=== PATIENT | female | born 1945 | race Caucasian/White ===

== ENCOUNTER → 2018-08-09 | Outpatient (CLI) | payer OTHER | END | disposition home or self-care (01) | LOC: NUCLEAR 07:00 | DX: I20.9 Angina pectoris, unspecified (principal) | CPT/HCPCS: 78452; 93017; A9500; J0153 ==

== ENCOUNTER 2021-04-14 09:21 | Outpatient (CLI) | payer OTHER | END 2021-04-14 09:26 | disposition home or self-care (01) | LOC: NUCLEAR 09:21 | PROVIDERS: ATTEND Internal Medicine Cardiovascular Disease | DX: I73.9 Peripheral vascular disease, unspecified (principal) ==

== ENCOUNTER 2021-05-27 10:44 | Outpatient (CLI) | payer OTHER | END 2021-05-27 10:55 | disposition home or self-care (01) | LOC: NUCLEAR 10:44 | PROVIDERS: ATTEND Internal Medicine | DX: G30.9 Alzheimer's disease, unspecified (principal) | CPT/HCPCS: 78803; A9557 ==

== ENCOUNTER 2021-11-14 07:29 | Outpatient (CLI) | payer OTHER | END 2021-11-14 07:34 | disposition home or self-care (01) | LOC: NUCLEAR 07:29 | PROVIDERS: ATTEND Internal Medicine Cardiovascular Disease | DX: R07.89 Other chest pain (principal); I34.0 Nonrheumatic mitral (valve) insufficiency | CPT/HCPCS: 78452; 93017; 93306; 93005; A9500 ==

== ENCOUNTER 2022-01-05 12:45 | Outpatient (CLI) | payer OTHER | END 2022-01-05 12:46 | disposition home or self-care (01) | LOC: NUCLEAR 12:45 | PROVIDERS: ATTEND Internal Medicine Cardiovascular Disease | DX: R07.89 Other chest pain (principal) | CPT/HCPCS: 78472; A9560 ==